=== PATIENT | female | born 2000 | race Caucasian/White ===

== ENCOUNTER 2021-07-03 10:06 | Emergency (ER) | payer BC ==
[2021-07-03 11:28] LABS: HEMOGLOBIN 14.1 gm/dl (12.3-15.3); RED BLOOD COUNT 4.88 M/UL (4.00-5.10)
[2021-07-03 11:42] LABS: BUN/CREATININE RATIO 12 (0-10)
[2021-07-03] MEDS ORDERED: BENTYL 20MG TAB20 MG PO (13:52)
== END 2021-07-03 14:05 | disposition home or self-care (01) ==
LOC: ER1 10:06
PROVIDERS: Physician Assistant Medical
DX: R10.31 Right lower quadrant pain (principal); R19.7 Diarrhea, unspecified; F32.A Depression, unspecified; R10.813 Right lower quadrant abdominal tenderness; Z51.81 Encounter for therapeutic drug level monitoring
CPT/HCPCS: 80053; 80307; 81001; 82272; 84703; 85025; 85610; 96374; 99284; C9113; G0480; J7030; Q9967

== ENCOUNTER 2021-07-04 21:03 | Emergency (ER) | payer BC ==
[~2021-07-04 21:03] MED LIST: BENTYL 20MG TAB20 MG PO
== END 2021-07-04 23:30 | disposition left against medical advice (07) ==
LOC: ER1 21:03
DX: Z53.21 Procedure and treatment not carried out due to patient leaving prior to being seen by health care provider (principal)